=== PATIENT | female | born 1980 | race Asian ===

== ENCOUNTER 2016-08-29 04:20 | Observation (INO) | payer MEDICAID, OTHER ==
[~2016-08-29] VITALS: Ht 157.5 cm; Wt 77.8 kg
[~2016-08-29 04:20] MED LIST: ANAP550T PO; PERC5TAB12 PO; PRED10 PO; PRENTAB72 PO; SENN1TAB11 PO; ZOVI800T13 PO
[2016-08-29 04:22] VITALS: BP 153/74; PULSE 97; RESP 16; TEMP 97.9; O2SAT 100
[2016-08-29 04:57] VITALS: BP 100/69; PULSE 69; RESP 14; O2SAT 100
[2016-08-29] MEDS ORDERED: SODIUM CHLORIDE 0.9% FLUSH 5 ML FLUSH IVF PRN ×2 (05:00→07:00)
--- NOTE | 2016-08-29 05:12 | PD ---
HPI Chief Complaint: Chest Pain Time Seen by Provider: 04:49 Travel History International Travel<30 days: No Contact w/Intl Traveler<30days: No Traveled to known affect area: No History of Present Illness HPI The patient is a 36 year old female who presents to the [facility] emergency department with a history of chest pain that she describes as a pressure sensation in the center of her chest that comes and goes for the last 4 -5 days. She reports that it is increased with any type distress. She reports that she also has dyspnea on exertion with walking up the stairs and shortness of breath at times when she has the chest pain. She denies having any radiation of the pain. She reports that she has had some nausea but no vomiting. She does report having some acid reflux symptoms recently that she controls when necessary with Zantac. She reports having some difficulty sleeping at times related to her acid reflux. She also reports having intermittent bitemporal headaches and joint pains. She reports that the joint pains have been ongoing and intermittent for months. She also reports having irregular menstrual cycles and no cycle since June 18, 2016, however she reports that her cycles have been irregular in the past. She denies having a primary care physician. She denies having any prior history of myocardial infarction, congestive heart failure, DVT, or PE. The patient denies any recent fevers, cough, congestion, neck pain, abdominal pain, vomiting, diarrhea, urinary symptoms, or neurologic symptoms. LMP: June 18, 2017. [facility] Past Medical History Narrative Medical The patient's past medical history is significant for irregular menstrual cycles and acid reflux. Medical History: Denies Significant Hx Diminished Hearing: No Immunizations Current: Yes ?: Not LMP: 06/18/17 : 1 : 1 Past Surgical History Narrative Surgical The patient's past surgical history is significant for a times one. Section: Yes Social History Alcohol Use: No Tobacco Use: No Substance Use: No Allergies-Medications (Allergen,Severity, Reaction): Coded Allergies: Shellfish (Verified Allergy, Severe, Rash, 08/29/16) [place] (Verified Allergy, Severe, Rash, 08/29/16) Reported Meds & Prescriptions Reported Meds & Active Scripts Active Naprosyn (Naproxen) 500 Mg Tab 500 Mg PO BID Review of Systems Except as stated in HPI: all other systems reviewed are Neg General / Constitutional: No: Fever Eyes: No: Visual changes HENT: Positive: Headaches, No: Rhinorrhea, Congestion, Neck Pain Cardiovascular: Positive: Chest Pain or Discomfort, Dyspnea on exertion, No: Diaphoresis Respiratory: No: Shortness of Breath Gastrointestinal: Positive: Nausea, Indigestion, No: Vomiting, Diarrhea, Abdominal Pain, Changes in Bowel Habits, Loss of Appetite Genitourinary: No: Dysuria Musculoskeletal: Positive: Arthralgias, No: Pain Skin: No Rash Neurologic: Positive: Headache, No: Weakness, Focal Abnormalities, Coordination Problem, Change in Mentation, Slurred Speech, Sensory Disturbance Psychiatric: No: Depression Endocrine: No: Polydipsia Hematologic/Lymphatic: No: Easy Bruising Physical Exam Narrative General: The patient is a well-developed well-nourished female in no acute distress. Head and Neck exam: Head is normocephalic atraumatic. Eyes: EOMI, pupils are equal round and reactive to light. Nose: Midline septum with pink mucous membranes Mouth: Dentition unremarkable. Moist mucus membranes. Posterior oropharynx is not erythematous. No tonsillar hypertrophy. Uvula midline. Airway patent. Neck: No palpable lymphadenopathy. No nuchal rigidity. No thyromegaly. Cardiovascular: Regular rate and rhythm without murmurs, gallops, or rubs. Lungs: Clear to auscultation bilaterally. No wheezes, rhonchi, or rales. Abdomen: Soft, without tenderness to palpation in all 4 quadrants of the abdomen. No guarding, rebound, or rigidity. Normal bowel sounds are audible. Extremities: No clubbing, cyanosis, or edema. 2+ pulses in all 4 extremities. No calf tenderness on palpation. No joint swelling or erythema. No joint deformity. No ligament laxity. No loss of range of motion. Back: No spinous process tenderness to palpation. No costovertebral angle tenderness to palpation. Neurologic Exam: Grossly nonfocal. Skin Exam: No rash noted. Intact skin that is warm and dry. Data Data Last Documented VS Vital Signs Date Time Temp Pulse Resp B/P Pulse Ox O2 Delivery O2 Flow Rate FiO2 08/29/16 04:58 100 Room Air 08/29/16 04:57 69 14 100/69 08/29/16 04:22 97.9 Orders Electrocardiogram (08/29/16 04:49) Ckmb (Isoenzyme) Profile (08/29/16 04:49) Complete Blood Count With Diff (08/29/16 04:49) Comprehensive Metabolic Panel (08/29/16 04:49) D-Dimer (08/29/16 04:49) Magnesium (Mg) (08/29/16 04:49) Prothrombin Time / Inr (Pt) (08/29/16 04:49) Act Partial Throm Time (Ptt) (08/29/16 04:49) Troponin I (08/29/16 04:49) Chest, Single Ap (08/29/16 04:49) Ecg Monitoring (08/29/16 04:49) Bilateral Bp Monitoring (08/29/16 04:49) Iv Access Insert/Monitor (08/29/16 04:49) Oximetry (08/29/16 04:49) Oxygen Administration (08/29/16 04:49) Sodium Chloride 0.9% Flush (Ns Flush) (08/29/16 05:00) Ed Urine Pregnancytest Poc (08/29/16 04:49) Thyroid Stimulating Hormone (08/29/16 05:13) Sodium Chlorid 0.9% 500 Ml Inj (Ns 500 M (08/29/16 05:15) Pantoprazole Inj (Protonix Inj) (08/29/16 05:15) Aspirin Chew (Aspirin Chew) (08/29/16 05:15) Nitroglycerin Sl (Nitrostat Sl) (08/29/16 05:15) Thyroid Stimulating Hormone (08/29/16 05:00) CKMB (08/29/16 05:00) CKMB% (08/29/16 05:00) Admit Order (Ed Use Only) (08/29/16 06:47) Place In Observation (08/29/16 06:47) Activity Bed Rest With Brp (08/29/16 06:47) Vital Signs (Adult) Q4H (08/29/16 06:47) Cardiac Rhythm .As Directed (08/29/16 06:47) ^ Notify Dr: Other .PRN (08/29/16 06:47) ^ Notify Dr. Parameters (08/29/16 06:47) Resp Oxygen Nasal Cannula (08/29/16 ) ^ Obtain (08/29/16 06:47) Sodium Chloride 0.9% Flush (Ns Flush) (08/29/16 07:00) Sodium Chloride 0.9% Flush (Ns Flush) (08/29/16 09:00) Pantoprazole (Protonix) (08/29/16 09:00) Hand Method Lasting Machine Operator / Telemetry JONI.[id number] (08/29/16 06:47) Labs Laboratory Tests Test 08/29/16 05:00 White Blood Count 12.1 TH/MM3 Red Blood Count 4.14 MIL/MM3 Hemoglobin 11.4 GM/DL Hematocrit 35.3 % Mean Corpuscular Volume 85.3 FL Mean Corpuscular Hemoglobin 27.6 PG Mean Corpuscular Hemoglobin 32.3 % Concent Red Cell Distribution Width 13.8 % Platelet Count 351 TH/MM3 Mean Platelet Volume 7.6 FL Neutrophils (%) (Auto) 59.0 % Lymphocytes (%) (Auto) 33.1 % Monocytes (%) (Auto) 5.9 % Eosinophils (%) (Auto) 1.3 % Basophils (%) (Auto) 0.7 % Neutrophils # (Auto) 7.1 TH/MM3 Lymphocytes # (Auto) 4.0 TH/MM3 Monocytes # (Auto) 0.7 TH/MM3 Eosinophils # (Auto) 0.2 TH/MM3 Basophils # (Auto) 0.1 TH/MM3 CBC Comment DIFF FINAL Differential Comment Prothrombin Time 10.4 SEC Prothromb Time International 0.9 RATIO Ratio Activated Partial 25.9 SEC Thromboplast Time D-Dimer Quantitative (PE/DVT) 0.43 MG/L FEU Sodium Level 139 MEQ/L Potassium Level 3.5 MEQ/L Chloride Level 105 MEQ/L Carbon Dioxide Level 24.0 MEQ/L Anion Gap 10 MEQ/L Blood Urea Nitrogen 8 MG/DL Creatinine 0.82 MG/DL Estimat Glomerular Filtration 79 ML/MIN Rate Random Glucose 92 MG/DL Calcium Level 8.7 MG/DL Magnesium Level 2.0 MG/DL Total Bilirubin 0.4 MG/DL Aspartate Amino Transf 15 U/L (AST/SGOT) Alanine Aminotransferase 27 U/L (ALT/SGPT) Alkaline Phosphatase 49 U/L Total Creatine Kinase 112 U/L Creatine Kinase MB 0.8 NG/ML Troponin I LESS THAN 0.02 NG/ML Total Protein 8.4 GM/DL Albumin 3.5 GM/DL Thyroid Stimulating Hormone 4.460 uIU/ML 3rd Gen [facility] Medical Decision Making Medical Screen Exam Complete: Yes Emergency Medical Condition: Yes Medical Record Reviewed: Yes Interpretation(s) Last Impressions Chest X-Ray 08/29/16 0449 Signed Impressions: Service Date/Time: Monday, August 29, 2016 05:18 - CONCLUSION: No acute cardiopulmonary process. Sekou Valencia MD Differential Diagnosis Acute coronary syndrome, versus pulmonary embolism, versus endocrine abnormality , versus acid reflux, versus pleurisy Narrative Course During the course of the patients emergency department visit, the patients history, examination, and differential diagnosis were reviewed with the patient. The patient had IV access obtained and blood work sent for analysis. The patient was placed on a gambling dealer with oximetry and blood pressure monitoring. An EKG was done on arrival. The patient's EKG shows a sinus rhythm heart rate of 99, no acute ST segment elevation is noted, however the patient is noted to have downsloping ST segments in lead 3. The patient was provided aspirin 162 mg by mouth 1. The patient was given nitroglycerin sublingual 1, Protonix 40 mg IV. The patient was given a normal saline 500 mL bolus 1. The patients laboratory studies were reviewed and remarkable for a CBC that shows a white count of 12.1, hemoglobin 11.4, platelets 351 with a normal differential. CMP was remarkable for a GFR 79, initial set of cardiac enzymes are negative, TSH is 4.22, PT PTT unremarkable. D-dimer is 0.43 decrease the likelihood of pulmonary embolism in this patient with no other significant risk factors. A chest x-ray that shows no acute cardiopulmonary process. The patient on reexamination reportedly was feeling improved. The patient was agreeable with plan to proceed with admission to the chest pain center for rule out serial cardiac enzyme protocol and consideration of stress testing to follow. The patients results were discussed with the patient, including the plan of care. I explained that further testing and/ or monitoring is indicated based on the patients history, examination, and/ or laboratory findings. Therefore, I recommended admission for additional evaluation. The patient expressed understanding and was agreeable with this plan. The patient was admitted to the hospital in stable condition and sent to a bed under the care of the chest pain center. Diagnosis Primary Impression: Chest pain, rule out acute myocardial infarction Additional Impression: Acid reflux Admitting Information Admitting Physician Requests: Observation Scripts Naproxen (Naprosyn)500 Mg [id number] Mg PO BID #20 TAB Ref 0 Prov:Priyank Sheppard 08/29/16 Anne Marie Overton MD Aug 29, 2016 05:12
[2016-08-29] MEDS ORDERED: PANTOPRAZOLE SODIUM 40 MG VIAL IV PUSH ONE (05:15)
[2016-08-29] MEDS ORDERED: NITROGLYCERIN 0.4 MG SL 25 TABS/BTL SL ONE (05:15)
[2016-08-29] MEDS ORDERED: ASPIRIN 81 MG CHEW TAB CHEW ONE (05:15)
[2016-08-29] MEDS ORDERED: SODIUM CHLORID 0.9% 500 ML INJ 500 ML IV ONE (05:15)
[2016-08-29 05:19] LABS: AUTOMATED NEUTROPHIL # 7.1 TH/MM3 (1.8-7.7); BASOPHIL # 0.1 TH/MM3 (0-0.2); BASOPHIL % 0.7 % (0.0-2.0); EOSINOPHIL # 0.2 TH/MM3 (0-0.4); EOSINOPHIL % 1.3 % (0.0-4.0); HEMATOCRIT 35.3 % (35.0-46.0); HEMO FLAGS DIFF FINAL; LYMPH % 33.1 % (9.0-44.0); MEAN CELL VOLUME 85.3 FL (80.0-100.0); MEAN CORPUSCULAR HEMOGLOBIN 27.6 PG (27.0-34.0); MEAN CORPUSCULAR HGB CONC 32.3 % (32.0-36.0); MONO % 5.9 % (0.0-8.0); PLATELET COUNT 351 TH/MM3 (150-450); RED BLOOD COUNT 4.14 MIL/MM3 (4.00-5.30); RED CELL DISTRIBUTION WIDTH 13.8 % (11.6-17.2); WHITE BLOOD COUNT 12.1 TH/MM3 (4.0-11.0)
[2016-08-29 05:36] LABS: ALT (GPT) 27 U/L (10-53); ANION GAP 10 MEQ/L (5-15); AST (GOT) 15 U/L (15-37); BLOOD UREA NITROGEN 8 MG/DL (7-18); CHLORIDE 105 MEQ/L (98-107); GLOMERULAR FILTRATION RATE 79 ML/MIN (>89); POTASSIUM 3.5 MEQ/L (3.5-5.1); SODIUM (NA) 139 MEQ/L (136-145)
[2016-08-29 05:41] LABS: APTT (PATIENT) 25.9 SEC (24.3-30.1); INTERNATIONAL NORMALIZED RATIO 0.9 RATIO; PROTHROMBIN TIME - PATIENT 10.4 SEC (9.8-11.6)
[2016-08-29 05:46] LABS: ALKALINE PHOSPHATASE 49 U/L (45-117); CREATINE KINASE 112 U/L (26-192); TOTAL BILIRUBIN ADULT 0.4 MG/DL (0.2-1.0)
--- NOTE | 2016-08-29 05:50 | RADRPT ---
EXAM DATE/TIME: 08/29/2016 05:18 [place] COMPARISON: No previous studies available for comparison. INDICATIONS : Chest pain and pressure for two days. MEDICAL HISTORY : None. SURGICAL HISTORY : None. ENCOUNTER: Initial ACUITY: 2 days PAIN SCORE: 4/10 LOCATION: Bilateral chest FINDINGS: A single view of the chest demonstrates the lungs to be symmetrically aerated without evidence of mas s, infiltrate or effusion. The cardiomediastinal contours are unremarkable. Osseous structures are intact. CONCLUSION: No acute cardiopulmonary process. Sekou Valencia MD on August 29, 2016 at 5:48 Board Certified Radiologist. This report was verified electronically.
[2016-08-29 05:58] LABS: CKMB 0.8 NG/ML (0.5-3.6)
[2016-08-29] MEDS ORDERED: NAPR500 PO (07:52)
--- NOTE | 2016-08-29 07:52 | HHI.DCPOC ---
Discharge Care Plan Diagnosis: (1) Chest pain, atypical Goals to Promote Your Health * To prevent worsening of your condition and complications * To maintain your health at the optimal level Directions to Meet Your Goals Take your medications as prescribed Follow your dietary instruction Follow activity as directed Keep your appointments as scheduled Take your immunizations and boosters as scheduled If your symptoms worsen call your PCP, if no PCP go to Urgent Care Center or Emergency Room Smoking is Dangerous to Your Health. Avoid second hand smoke Call the 24-hour hour crisis hotline for domestic abuse at Priyank Sheppard Aug 29, 2016 07:52
[2016-08-29 07:54] VITALS: O2SAT 97
--- NOTE | 2016-08-29 08:10 | HHI.HP ---
[facility] Chief Complaint Chest pain History of Present Illness This is a 36-year-old female that presents to ED via private vehicle complaining of 4 days of intermittent central chest pressure. She states that whenever she gets upset or raises her voice at her or her daughter that she developed discomfort in her chest. It will last for about 2 hours. She'll states that she gets a little short of breath when she goes upstairs. She states that she really does not exercise. Denies family history of heart disease and also denies hypertension hyperlipidemia and diabetes CAD and tobacco abuse. She states she has been under a lot of stress. 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 Denies . Review of Systems General: Patient denies fevers, chills recent, and recent travel HEENT: Patient denies headache, sore throat, difficulty swallowing. Cardiovascular: Has the chest discomfort as mentioned above. Denies sensation of heart beating rapidly or irregularly. Denies diaphoresis. No syncope. Respiratory: Complains of shortness of breath walking upstairs. Denies inspirational chest discomfort. Denies coughing wheezing or hemoptysis. GI: Patient denies nausea, vomiting, diarrhea, abdominal pain, bloody stools. Musculoskeletal: Patient denies joint pain or edema. Denies calf pain or edema. Neurovascular: Patient denies numbness, tingling, weakness in extremities. Denies headache. Endocrine: Denies polyuria and polydipsia. Hematologic: Denies easy bruising. Skin: Denies rash or itching. Past Family Social History Allergies: Coded Allergies: Shellfish (Verified Allergy, Severe, Rash, 08/29/16) [place] (Verified Allergy, Severe, Rash, 08/29/16) Past Medical History Denies hypertension, hyperlipidemia, diabetes, CAD, and tobacco abuse. Past Surgical History Reported Medications Reported Meds & Active Scripts Active Naprosyn (Naproxen) 500 Mg Tab 500 Mg PO BID Family History Denies family history of CAD. Social History Patient is a lifetime nonsmoker. Denies alcohol or illicit drugs. She is and has a 4-year-old daughter. She her own a convenience store. Physical Exam Vital Signs Vital Signs Date Time Temp Pulse Resp B/P Pulse Ox O2 Delivery O2 Flow Rate FiO2 08/29/16 07:54 97 Room Air 08/29/16 04:58 100 Room Air 08/29/16 04:57 69 14 100/69 100 Room Air 08/29/16 04:22 97.9 97 16 153/74 100 Physical Exam GENERAL: Patient is examined with Dr. Griffith. This is a well-nourished, well-developed patient, in no apparent distress. Patient speaks in clear complete sentences. Patient is pleasant. HEENT: Head is atraumatic and normocephalic. Neck is supple without lymphadenopathy and trachea is midline. No JVD or carotid bruits. CARDIOVASCULAR: Regular rate and rhythm without murmurs, gallops, or rubs. RESPIRATORY: Chest wall is tender over the sternum. This is the same type of discomfort that she has been having. Clear to auscultation. Breath sounds equal bilaterally. No wheezes, rales, or rhonchi. No use of accessory muscles. GASTROINTESTINAL: Abdomen is nontender, nondistended. Abdomen soft. No obvious pulsatile mass or bruit. No CVA tenderness. Strong femoral pulses bilaterally. Normal bowel sounds in all quadrants. MUSCULOSKELETAL: Patient is moving upper and lower extremities freely. No calf tenderness or edema, no Homans sign. Strong pulses in upper and lower extremities. NEUROLOGICAL: Patient is alert and oriented. Cranial nerves 2-12 are grossly intact. No focal deficits and speech is clear. SKIN: No rash and turgor is normal. Laboratory Laboratory Tests Test 08/29/16 05:00 White Blood Count 12.1 Red Blood Count 4.14 Hemoglobin 11.4 Hematocrit 35.3 Mean Corpuscular Volume 85.3 Mean Corpuscular Hemoglobin 27.6 Mean Corpuscular Hemoglobin 32.3 Concent Red Cell Distribution Width 13.8 Platelet Count 351 Mean Platelet Volume 7.6 Neutrophils (%) (Auto) 59.0 Lymphocytes (%) (Auto) 33.1 Monocytes (%) (Auto) 5.9 Eosinophils (%) (Auto) 1.3 Basophils (%) (Auto) 0.7 Neutrophils # (Auto) 7.1 Lymphocytes # (Auto) 4.0 Monocytes # (Auto) 0.7 Eosinophils # (Auto) 0.2 Basophils # (Auto) 0.1 CBC Comment DIFF FINAL Differential Comment Prothrombin Time 10.4 Prothromb Time International 0.9 Ratio Activated Partial 25.9 Thromboplast Time D-Dimer Quantitative (PE/DVT) 0.43 Sodium Level 139 Potassium Level 3.5 Chloride Level 105 Carbon Dioxide Level 24.0 Anion Gap 10 Blood Urea Nitrogen 8 Creatinine 0.82 Estimat Glomerular Filtration 79 Rate Random Glucose 92 Calcium Level 8.7 Magnesium Level 2.0 Total Bilirubin 0.4 Aspartate Amino Transf 15 (AST/SGOT) Alanine Aminotransferase 27 (ALT/SGPT) Alkaline Phosphatase 49 Total Creatine Kinase 112 Creatine Kinase MB 0.8 Troponin I LESS THAN 0.02 Total Protein 8.4 Albumin 3.5 Thyroid Stimulating Hormone 4.220 3rd Gen Result Diagram: 08/29/16 0500 08/29/16 0500 Imaging Last 24 hours Impressions Chest X-Ray 08/29/16 0449 Signed Impressions: Service Date/Time: Monday, August 29, 2016 05:18 - CONCLUSION: No acute cardiopulmonary process. Sekou Valencia MD Course EKG has sinus rhythm with no significant ST segment depressions or elevations. There is first-degree AV block. Assessment and Plan Assessment and Plan * Atypical chest pain: Patient's initial troponin is normal and EKG is nonischemic. Her symptoms are musculoskeletal in nature. She has been seen by Dr. Griffith and the chest pain center. She'll be given a prescription of Naprosyn and instructed to follow-up with her primary care physician who is at the [facility]. Patient voices understanding of this and will be discharged at this time. She is advised to take it easy and avoid lifting heavy objects for several days. Priyank Sheppard Aug 29, 2016 08:09
[2016-08-29] MEDS ORDERED: SODIUM CHLORIDE 0.9% FLUSH 5 ML FLUSH IVF SCH (09:00)
[2016-08-29] MEDS ORDERED: PANTOPRAZOLE SOD 40 MG DELAYED RELEASE TAB PO SCH (09:00)
--- NOTE | 2016-08-29 10:09 | EKG ---
Date Performed: 08/29/2016 Time Performed: 04:49:29 PTAGE: 36 years EKG: Sinus rhythm NORMAL ECG NO PREVIOUS TRACING DOCTOR: Adrien Belle Interpretating Date/Time 08/29/2016 10:07:11
== END 2016-08-29 07:56 | disposition home or self-care (01) ==
LOC: NEPE 04:20 → NEDA 06:51
PROVIDERS: ADMIT Internal Medicine Cardiovascular Disease; ATTEND Internal Medicine Cardiovascular Disease
DX: R07.89 Other chest pain (principal); R06.09 Other forms of dyspnea; I44.0 Atrioventricular block, first degree; R11.0 Nausea; K21.9 Gastro-esophageal reflux disease without esophagitis; R51 Headache; N92.6 Irregular menstruation, unspecified
CPT/HCPCS: 71010; 80053; 82550; 82552; 83735; 84443; 84484; 84703; 85025; 85379; 85610; 85730; 93005; 96361; 96374; 99285; C9113; G0378; J7040